=== PATIENT | male | born 1955 | race Caucasian/White ===

== ENCOUNTER 2020-03-20 17:06 | Inpatient (IN) | payer MEDICARE, OTHER ==
[2020-03-20 20:11] LABS: HEMOGLOBIN 16.1 gm/dl (14.0-17.5); RED BLOOD COUNT 6.64 M/UL (4.20-5.50); WHITE BLOOD COUNT 9.6 K/UL (4.5-11.0)
[2020-03-20 20:35] LABS: BUN/CREATININE RATIO 18 (0-10)
[2020-03-20] MEDS ORDERED: HYZAAR 100-251 EACH PO (22:45)
[2020-03-20] MEDS ORDERED: OMEPRAZOLE40 MG PO ×2 (22:45→23:02)
[2020-03-20] MEDS ORDERED: GLUCOPHAGE500 MG PO (22:49)
[2020-03-20] MEDS ORDERED: SULFAMETHOXAZO1 EACH PO (22:49)
[2020-03-20] MEDS ORDERED: PRAVASTATIN SOD10 MG PO (22:50)
[2020-03-20] MEDS ORDERED: BAYER CHEWABLE81 MG PO (22:50)
[2020-03-20] MEDS ORDERED: BUMETANIDE2 MG PO (22:51)
[2020-03-20] MEDS ORDERED: BUMETANIDE1 MG PO (22:52)
[2020-03-20] MEDS ORDERED: XARELTO20 MG PO (22:53)
[2020-03-20] MEDS ORDERED: TRAMADOL HCL50 MG PO (22:54)
[2020-03-20] MEDS ORDERED: COREG6.25 MG PO (22:54)
[2020-03-20] MEDS ORDERED: ATIVAN0.5 MG PO (22:55)
[2020-03-20] MEDS ORDERED: MIRALAX17 GM PO (22:57)
[2020-03-20] MEDS ORDERED: VENTOLIN HFA 66.7 GM INH (22:57)
[2020-03-20] MEDS ORDERED: VOLTAREN ARTHRI20 GM TOP (22:58)
[2020-03-20] MEDS ORDERED: ADVAIR 500-501 EACH INH (23:00)
[2020-03-20] MEDS ORDERED: FLONASE 0.05% N16 GM (23:00)
[2020-03-20] MEDS ORDERED: CONSTULOSE10 GM/15 M PO (23:01)
[2020-03-20] MEDS ORDERED: OMEGA 3 FISH O1 EACH PO (23:02)
[2020-03-20] MEDS ORDERED: SILVADENE CREAM20 GM TOP (23:04)
[2020-03-20] MEDS ORDERED: SPIRIVA HANDIH18 MCG INH (23:04)
[2020-03-21 04:06] LABS: BUN/CREATININE RATIO 20 (0-10)
--- NOTE | 2020-03-22 06:20 | NUR ---
PT HAS BEEN NON-COMPLIANT WITH TELE MONITOR FOR ENTIRE SHIFT SINCE ARRIVING TO FLOOR. 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
--- NOTE | 2020-03-23 04:44 | NUR ---
AT 0215 PT WAS OFFERED TRAMADOL FOR PAIN ORDERED WITH A BP 110/65. PT STATED HE WANTED "STRONGER" MEDICATION. PT ADVISED THAT BP WAS TOO LOW FOR HIGHER DOSE PAIN MEDICINE. AFTER [id number]-Y-HALF HOURS LATER, PT DECIDED HE WOULD TAKE TRAMADOL ORDERED.WCTM
[2020-03-23 05:27] LABS: HEMOGLOBIN 14.8 gm/dl (14.0-17.5); RED BLOOD COUNT 6.12 M/UL (4.20-5.50); WHITE BLOOD COUNT 9.2 K/UL (4.5-11.0)
[2020-03-23 05:50] LABS: BUN/CREATININE RATIO 19 (0-10)
--- NOTE | 2020-03-23 05:54 | NUR ---
AT 0546 ON 03/23/2020 PT WAS DISCOVERED TO HAVE BRIGHT RED BLOOD IN HELLER CATHETER. DR. KRAFT ALERTED TO BLOOD, AMOUNT, AND PAST TWO HGB LEVELS. ORDERED TO HOLD ANY ANTICOAGULANTS IF APPLICABLE. JOEY
[2020-03-24] MEDS ORDERED: LEVOFLOXACIN750 MG PO (13:05)
== END 2020-03-24 17:20 | disposition home or self-care (01) | DRG 291 ==
LOC: ER1 17:06 → ZEROF 22:44 → MED SURG 4 03-21 20:15
PROVIDERS: Internal Medicine Pulmonary Disease; Physician Assistant; ADMIT Internal Medicine
PROC: 0T9B70Z Drainage of Bladder with Drainage Device, Via Natural or Artificial Opening (ICD-10-PCS; principal; 2020-03-20)
PROC: B24BZZZ Ultrasonography of Heart with Aorta (ICD-10-PCS; 2020-03-22)
DX: I11.0 Hypertensive heart disease with heart failure (principal); J96.21 Acute and chronic respiratory failure with hypoxia; J18.9 Pneumonia, unspecified organism; L03.116 Cellulitis of left lower limb; L03.115 Cellulitis of right lower limb; Z68.41 Body mass index [BMI] 40.0-44.9, adult; E66.2 Morbid (severe) obesity with alveolar hypoventilation; G47.33 Obstructive sleep apnea (adult) (pediatric); I50.811 Acute right heart failure; E11.9 Type 2 diabetes mellitus without complications; F17.210 Nicotine dependence, cigarettes, uncomplicated; K21.9 Gastro-esophageal reflux disease without esophagitis; E87.70 Fluid overload, unspecified; I87.8 Other specified disorders of veins; R60.0 Localized edema; E78.5 Hyperlipidemia, unspecified; Z86.718 Personal history of other venous thrombosis and embolism; Z79.01 Long term (current) use of anticoagulants; Z99.81 Dependence on supplemental oxygen; Z90.49 Acquired absence of other specified parts of digestive tract
CPT/HCPCS: ECHO; 36600; 71045; 73502; 80048; 80053; 82550; 82553; 82803; 82962; 83605; 83735; 83874; 83880; 84100; 84439; 84443; 84484; 85025; 85652; 86140; 87081; 93005; 93306; 93308; 93970; 94664; 94760; 96365; 96366; 96367; 96368; 96376; 99285; J1940; J2543; U0002